=== PATIENT | female | born 1965 | race Caucasian/White ===

== ENCOUNTER 2018-04-13 16:45 | Inpatient (IN) | payer OTHER ==
[~2018-04-13] VITALS: Ht 152.4 cm; Wt 64.5 kg
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
[2018-04-13 17:42] LABS: ABSOLUTE BASOPHIL COUNT 0 /CUMM (0.0-0.2); ABSOLUTE EOSINOPHIL COUNT 0.1 /CUMM (0.0-0.7); ABSOLUTE GRANULOCYTE CT 6.5 /CUMM (1.4-6.5); ABSOLUTE LYMPH COUNT 1.5 /CUMM (1.2-3.4); ABSOLUTE MONOCYTE COUNT 0.3 /CUMM (0.10-0.60); BASOPHIL % 0.1 % (0.0-2.0); EOSINOPHIL % 1.6 % (0-5); GRANULOCYTE % 76.5 % (42.2-75.2); HEMATOCRIT 42.5 % (37-47); MEAN CORPUSCULAR HGB 28.5 PG (27.0-31.0); MEAN CORPUSCULAR HGB CONC 34.3 G/DL (33.0-37.0); MEAN CORPUSCULAR VOLUME 83.2 FL (81.0-99.0); PLATELET COUNT 216 /CUMM (130-400); RBC DISTRIBUTION WIDTH 13.9 % (11.5-14.5); RED BLOOD CELL CT 5.11 /CUMM (4.20-5.40); WHITE BLOOD CELL COUNT 8.4 /CUMM (4.8-10.8)
--- NOTE | 2018-04-13 17:58 | CT SCAN REPORT ---
EXAMINATION: CT HEAD WITHOUT CONTRAST CLINICAL INFORMATION: Syncopal episode COMPARISON: None TECHNIQUE: Contiguous axial imaging was performed from the skull base to vertex without intravenous administration of contrast. DLP: 608 mGy-cm FINDINGS: There is no evidence of acute intracranial hemorrhage or territorial infarction. No abnormal mass effect or midline shift is seen. Morales to white matter differentiation is well preserved. No extra-axial fluid collections are identified. The ventricles are normal in size. There is no abnormal attenuation within the brain parenchyma. The osseous structures and soft tissues are normal. The mastoid air cells and visualized portions of the paranasal sinuses are well aerated. IMPRESSION: No acute intracranial pathology.
[2018-04-13] MEDS ORDERED: TAMOXIFEN CITRA20 M1 PO (18:37)
[2018-04-13] MEDS ORDERED: HYDROXYZINE HCL10 M2 PO (18:38)
[2018-04-13] MEDS ORDERED: FLUTICASONE PRO16 GM NASB (18:38)
[2018-04-13] MEDS ORDERED: CYCLOBENZAPRINE10 M1 PO (18:38)
[2018-04-13] MEDS ORDERED: DULERA 200 MCG/13 GM INH (18:38)
[2018-04-13] MEDS ORDERED: VITAMIN B-121000 MC3 PO (18:39)
[2018-04-13] MEDS ORDERED: POTASSIUM99 M1 PO (18:39)
[2018-04-13] MEDS ORDERED: MULTIVITAMINS1 EAC9 PO (18:39)
[2018-04-13] MEDS ORDERED: TURMERIC500 M2 PO (18:39)
--- NOTE | 2018-04-13 19:48 | RADIOLOGY REPORT ---
EXAMINATION: XRY-PORTABLE CHEST XRAY CLINICAL INFORMATION: Presumptive Dx: PNA CHF
Signs Symptoms: SYNCOPE
COMPARISON: None TECHNIQUE: XRY-PORTABLE CHEST XRAY Tubes and lines: None Lungs and Diane: Increased opacification over the LEFT lung probably soft tissue overlap. Pleura: Normal. Costophrenic angles are sharp. No pneumothorax. Heart and mediastinum: The mediastinum is within normal limits.. There are tubular structures projecting over the mediastinum probably in patient's clothing's. Bones: Skeletal structures included are normal for patient's age. IMPRESSION: No radiographic evidence of acute cardiopulmonary disease.
--- NOTE | 2018-04-13 23:09 | History & Physical ---
Orion Boykin 04/13/18 6328: General Information and HPI MD Statement: I have seen and personally examined JESUS MARSH and documented this H&P. The patient is a 53 year old F who presented with a patient stated chief complaint of NEAR SYNCOPE. Source of Information: patient Exam Limitations: no limitations History of Present Illness: Patient is a 53-year-old woman with past medical history of hyperlipidemia, asthma, breast cancer s/p bilaterally mastectomy on Tamoxifen and disc herniation status post discectomy who presents with complaint of several non- syncopal episodes. The patient states she initially felt lightheaded and vertiginous while driving to a restaurant with her boyfriend. She had some prodromal symptoms and was able to pipe puller. While at the restaurant, the patient became presyncopal and hit her head on the table from a seated position. She also experienced the same symptoms when being brought to the ED by EMS. She denies losing consciousness. She denies palpitations, nausea, chest pain. She never experienced these symptoms before and thinks they are related to dehydration. She is also experiencing vertigo and gait instability several days prior to presentation. She does not drink much liquids including alcohol, one coffee in the morning. She is a daily smoker and overweight. She works as a business performance analyst, very sedentary. In the ED her vital signs were stable, blood tests unremarkable, troponins negative 2. She had a chest x-ray and normal head CT. EKG was normal sinus rhythm without ischemic changes. Normal cardiovascular neurological physical exam. She is admitted to telemetry for syncope workup. Allergies/Medications Allergies: Coded Allergies: Penicillins (HIVES 04/13/18) nut - unspecified (HIVES 04/13/18) venom-honey bee (HIVES 04/13/18) Home Med list Cyanocobalamin (Vitamin B-12) (Unknown Strength) TABLET (Unknown Dose) PO DAILY SUPPLEMENT (Reported) Cyclobenzaprine HCl 10 MG TABLET 1 TAB PO QPM MUSCLE SPASMS (Reported) Fluticasone Propionate 50 MCG/ACTUATION SPRAY.SUSP 2 SPRAY NASB PRN ALLERGIES (Reported) Hydroxyzine HCl (hydrOXYzine HCl) 10 MG TABLET 1 TAB PO QPM ITCHING (Reported ) Mometasone/Formoterol (Dulera 200 Mcg/5 Mcg Inhaler) 200 MCG-5 MCG/ACTUATION HFA.AER.AD 2 PUF INH BID PRN RESP. (Reported) Multiple Vitamin (Multivitamins) 1 EACH TABLET 1 TAB PO DAILY SUPPLEMENT ( Reported) Potassium Gluconate (Potassium) 595 MG (99 MG) TABLET 1 TAB PO DAILY SUPPLEMENT (Reported) Tamoxifen Citrate 20 MG TABLET 1 TAB PO DAILY BREAST CANCER (Reported) Turmeric Root Extract (Turmeric) (Unknown Strength) CAPSULE (Unknown Dose) PO DAILY SUPPLEMENT (Reported) Compliance With Home Meds: GOOD Past History Travel History Traveled to [place] past 21 day No Medical History Neurological: dizziness EENT: allergies Cardiovascular: hyperlipidemia Gastrointestinal: constipation Musculoskeletal: disk herniation Cancer(s): breast cancer Isolation History: Standard Surgical History Surgical History: non-contributory Past Family/Social History Psychosocial History Smoking Status: Current Everyday Smoker ETOH Use: denies use Illicit Drug Use: denies illicit drug use Review of Systems Review of Systems Constitutional: Reports: see HPI. Cardiovascular: Denies: chest pain, palpitations, syncope. Respiratory: Denies: short of breath. Neurological/Psychological: Denies: ataxia, headache, numbness, paresthesia, tingling, weakness. All Other Systems: Reviewed and Negative Exam & Diagnostic Data Last 24 Hrs of Vital Signs/I&O Vital Signs Date Time Temp Pulse Resp B/P B/P Pulse O2 O2 Flow FiO2 Mean Ox Delivery Rate 04/14 0634 98.5 91 20 150/77 97 Room Air 04/14 0010 150/90 04/14 0000 97.8 80 20 163/79 96 Room Air 04/13 2232 98.6 82 18 160/85 98 Room Air 04/13 2021 84 18 157/84 98 Room Air 04/13 1710 Room Air 04/13 1706 98.2 92 19 167/93 96 Room Air Intake & Output 04/14 1600 04/14 0800 04/14 0000 Intake Total 120 Output Total Balance 120 Intake, Oral 120 Patient 138 lb Weight Weight Bed scale Measurement Method Physical Exam General Appearance Alert, Oriented X3, Cooperative, No Acute Distress Skin No Rashes, No Breakdown, No Significant Lesion Skin Temp/Moisture Exam: Warm/Dry HEENT Atraumatic, PERRLA, EOMI, Mucous Membr. moist/pink Neck Supple, No JVD, No thryomegaly Cardiovascular Regular Rate, Normal S1, Normal S2, No Murmurs, Gallops, Rubs Lungs Clear to Auscultation, Normal Air Movement Abdomen Normal Bowel Sounds, Soft, No Tenderness Neurological Normal Speech, Strength at 5/5 X4 Ext, Normal Tone, Sensation Intact Extremities No Clubbing, No Cyanosis, No Edema Last 24 Hrs of Labs/Misha: Laboratory Tests 04/14/18 0647: Anion Gap 6, Estimated GFR > 60, BUN/Creatinine Ratio 18.8, Magnesium 1.9, Troponin I < 0.01, D-Dimer High Sensitivty < 200 04/14/18 0600: CBC w Diff Cancelled, WBC Cancelled, RBC Cancelled, Hgb Cancelled, Hct Cancelled , MCV Cancelled, MCH Cancelled, MCHC Cancelled, RDW Cancelled, Plt Count Cancelled, MPV Cancelled 04/13/182014: Troponin I < 0.01 04/13/18 1735: Anion Gap 6, Estimated GFR > 60, BUN/Creatinine Ratio 21.1, Glucose 117 H, Calcium 10.2, Total Bilirubin 0.2, AST 31, ALT 54 H, Alkaline Phosphatase 85, Troponin I < 0.01, Total Protein 7.1, Albumin 4.4, Globulin 2.7, Albumin/ Globulin Ratio 1.6, CBC w Diff NO MAN DIFF REQ, RBC 5.11, MCV 83.2, MCH 28.5, MCHC 34.3, RDW 13.9, MPV 10.0, Gran % 76.5 H, Lymphocytes % 17.7 L, Monocytes % 4.1, Eosinophils % 1.6, Basophils % 0.1, Absolute Granulocytes 6.5, Absolute Lymphocytes 1.5, Absolute Monocytes 0.3, Absolute Eosinophils 0.1, Absolute Basophils 0 Diagnostic Data EKG Results Sinus CXR Results Unremarkable Other Results CT head unremarkable Assessment/Plan Assessment: Patient is a 53-year-old woman with past medical history of hyperlipidemia, asthma, breast cancer s/p bilaterally mastectomy on Tamoxifen and disc herniation status post discectomy who presents with complaint of several non- syncopal episodes. Problem list/plan: Near syncope Breast cancer DVT prophylaxis: Lovenox and ALPS Heart healthy diet Patient is full code As Ranked By This Provider Problem List: 1. Syncope Qualifiers Syncope type: unspecified Qualified Code: R55 - Syncope and collapse Core Measures/Misc (05/06) Acute Coronary Syndrome ACS Diagnosis: No Congestive Heart Failure Congestive Heart Failure Diagnosis No Cerebrovascular Accident CVA/TIA Diagnosis: No VTE (View Protocol) VTE Risk Factors Age>40 No Mechanical VTE Prophylaxis d/t N/A MechProphylax Ordered No VTE Pharm Prophylaxis d/t NA PharmProphylax ordered Sepsis (View protocol) Sepsis Present: No If YES complete Sepsis Event Note If YES complete Sepsis Event Note Cindy BELLARaji Christine 04/14/18 0544: Core Measures/Misc (05/06) Sepsis (View protocol) If YES complete Sepsis Event Note If YES complete Sepsis Event Note Attending MD Review Statement Attending Statement Attending MD Statement: examined this patient, discuss w/resident/PA/SPICE MILLER HAMMER MILL, agreed w/resident/PA/SPICE MILLER HAMMER MILL Attending Assessment/Plan: Healthy 53 year-old presenting with recurrent syncopal episodes today. Occurred at rest, and without relation to postural changes in all instances. Weems dizzy and lightheaded immediately before all episodes, but without complaint of chest pain, palpitations, or seizure-like activity. Lab work was benign, as was imaging of the head. She is presently symptom free. Perhaps under some home stress. Place in observation for evaluation of recurrent syncope. There are prodromal symptoms, seemingly making arrhythmia less likely, although certainly enough to warrant overnight telemetry monitoring. Structural heart disease would be surprising but can be evaluated with echocardiogram. Due to her young age and multiple episodes a Cardiology consultation will be requested for evaluation for Holter. Hakeem Milton MD 04/14/18 0553: Core Measures/Misc (05/06) Sepsis (View protocol) If YES complete Sepsis Event Note If YES complete Sepsis Event Note Resident Review Statement Resident Statement: examined this patient, discussed with graphic design intern, agreed with graphic design intern, reviewed EMR data (avail) Other Findings: 53 year old female with PMH significant for asthma and breast cancer s/p lumpectomy + radx 2002 now s/p bilateral mastectomy in 2014 on Tamoxifen presents with several episodes of syncope. The patient reportedly first experience feeling lightheaded and vertigo while driving to eat with her boyfriend. She had some prodromal symptoms and was able to pipe puller. Then while eating she became presyncope and hit her head on the table from a seated position. She also experience the same symptoms which were apparently witnessed by EMS, while on the stretcher rolling into the ED. She denies ever losing consciousness. She denied any palpitations, nausea, or chest pain. She has never experienced these symptoms before and thinks they are related to dehydration. She also experience some vertigo and gait instability several days prior to presentation while shopping. She doesn't drink much liquids including alcohol, one coffee in the morning. She is a daily smoker and obese. 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 In the ED, her vital signs were stable and blood tests unremarkable, troponins negative x 2. SHe had a chest x-ray and normal head CT without contrast. Her EKG was normal sinus rhythm without ischemic changes. She had a normal cardiovascular and neurological physical examination. She was admitted to telemetry for syncope workup. Syncope: Monitor on telemetry for arrhythmias Check serial troponins and EKGs to evaluate for myocardial ischemia Check echocardiogram to evaluate for structural heart disease Check carotid dopplers to evaluate cerebral circulation patency Cardiology consultation May need outpatient Holter monitoring for arrhythmia evaluation Breast cancer: Continue tamoxifen Heart healthy diet DVT ppx-lovenox sc Full code
[2018-04-14] VITALS: BP 163/79
[2018-04-14 00:10] VITALS: BP 150/90
[2018-04-14 06:34] VITALS: BP 150/77
--- NOTE | 2018-04-14 09:06 | PN- Housestaff ---
Alicia BELLA,Cullen 04/14/18 0906: Subjective Follow-up For: Near syncope Tele-Events Since Last Visit: Normal sinus rhythm Heart rate 60s-90s Subjective: Patient seen and examined. Patient is seen resting in her bed comfortably. She slept well and has no complaints. She denies any further episodes of dizziness or palpitations. She is concerned about "having these episodes again" and states that it was one year ago that she was hospitalized for the "same thing". She is worried about being able to return to work. Currently she denies any chest pain, shortness of breath, or abdominal pain. Review of Systems Constitutional: Reports: see HPI. Objective Last 24 Hrs of Vital Signs/I&O Vital Signs Date Time Temp Pulse Resp B/P B/P Pulse O2 O2 Flow FiO2 Mean Ox Delivery Rate 04/14 0634 98.5 91 20 150/77 97 Room Air 04/14 0010 150/90 04/14 0000 97.8 80 20 163/79 96 Room Air 04/13 2232 98.6 82 18 160/85 98 Room Air 04/13 2021 84 18 157/84 98 Room Air 04/13 1710 Room Air 04/13 1706 98.2 92 19 167/93 96 Room Air Intake & Output 04/14 1600 04/14 0800 04/14 0000 Intake Total 120 Output Total Balance 120 Intake, Oral 120 Patient 62.596 kg Weight Weight Bed scale Measurement Method Physical Exam General Appearance: Alert, Oriented X3, Cooperative, No Acute Distress Other Physical Findings: General - well developed, well nourished middle-aged woman in no acute distress HEENT - NCAT, PERRL, EOMI, anicteric sclera Neck- Supple, no JVD/HJR, no bruits, trachea midline, thyroid normal Cardio - S1, S2 w/o murmurs/gallops/rubs; regular rate and rhythm Resp - Clear to auscultation bilaterally GI - Soft, nontender, nondistended, bowel sounds present Neuro - Awake and alert, CN II - XII grossly intact Extremities - No edema, pulses intact Current Medications: Current Medications Sig/Justyna Start time Last Medication Dose Route Stop Time Status Admin Acetaminophen 650 MG Q6P PRN 04/14 0015 AC PO Cyclobenzaprine HCl 10 MG QPM 04/14 2100 AC PO Cyclobenzaprine HCl 10 MG ONCE ONE 04/14 0030 DC 04/14 PO 04/14 0031 0041 Enoxaparin Sodium 40 MG DAILY 04/14 0900 AC 04/14 SC 0841 Fluticasone 2 SPRAY BID PRN 04/14 0230 AC Propionate DYLAN Hydroxyzine HCl 10 MG QPM 04/14 2100 AC PO Tamoxifen Citrate 20 MG DAILY 04/14 09 AC 04/14 PO 0927 Last 24 Hrs of Lab/Misha Results Last 24 Hrs of Labs/Mics: Laboratory Tests 04/14/18 0647: Anion Gap 6, Estimated GFR > 60, BUN/Creatinine Ratio 18.8, Magnesium 1.9, Troponin I < 0.01, D-Dimer High Sensitivty < 200 04/14/18 06: CBC w Diff Cancelled, WBC Cancelled, RBC Cancelled, Hgb Cancelled, Hct Cancelled , MCV Cancelled, MCH Cancelled, MCHC Cancelled, RDW Cancelled, Plt Count Cancelled, MPV Cancelled 04/13/182014: Troponin I < 0.01 04/13/18 1735: Anion Gap 6, Estimated GFR > 60, BUN/Creatinine Ratio 21.1, Glucose 117 H, Calcium 10.2, Total Bilirubin 0.2, AST 31, ALT 54 H, Alkaline Phosphatase 85, Troponin I < 0.01, Total Protein 7.1, Albumin 4.4, Globulin 2.7, Albumin/ Globulin Ratio 1.6, CBC w Diff NO MAN DIFF REQ, RBC 5.11, MCV 83.2, MCH 28.5, MCHC 34.3, RDW 13.9, MPV 10.0, Gran % 76.5 H, Lymphocytes % 17.7 L, Monocytes % 4.1, Eosinophils % 1.6, Basophils % 0.1, Absolute Granulocytes 6.5, Absolute Lymphocytes 1.5, Absolute Monocytes 0.3, Absolute Eosinophils 0.1, Absolute Basophils 0 Assessment/Plan Assessment: 53-year-old woman with multiple medical problems significant for previous episodes of syncope status post outpatient Holter monitor without any events seen for evaluation of multiple new near syncopal events for which she was admitted to the telemetry floor. Patient feels well and has no complaints and denies any further episodes of near syncope. Vital signs remain within normal limits aside from blood pressures ranging 150-160 systolic. Physical examination is unremarkable. Serial troponin/EKG are unremarkable. No events on telemetry overnight. Orthostatic blood pressures are negative. Patient has carotid Doppler and echocardiogram pending. Cardiology recommendations still pending. Patient may require outpatient Holter monitoring. Problem list -Near-syncope -hyperlipidemia -Asthma -History of discectomy -History of breast cancer status post bilateral mastectomy, on tamoxifen Plan -Continue telemetry floor admission -Telemetry monitoring -Continue home meds: Tamoxifen, Flexeril, fluticasone, Atarax -Cardiology consult pending for near syncope -Follow-up transthoracic echocardiogram -Follow-up carotid Doppler -Pain control with acetaminophen -Heart healthy diet -DVT prophylaxis with Lovenox -Full code Problem List: 1. Syncope Pain Ratin Pain Location: None Pain Goal: Remain pain free Pain Plan: See assessment Tomorrow's Labs & Rationales: None Adrian BELLA,Emile 04/14/18 0954: Attending MD Review Statement Attending Statement Attending MD Statement: examined this patient, discuss w/resident/PA/HAT BINDER, agreed w/resident/PA/HAT BINDER, reviewed EMR data (avail), discussed with nursing, amended to note Attending Assessment/Plan: Patient seen and examined. Resting comfortably and not in any acute distress. No events of on telemetry monitoring. No further reports of dizziness or loss of consciousness. Orthostatic vitals were checked this morning with no significant changes. Patient reports that she had Holter monitor placed several years ago. She is unclear of the indication for the study. She also does not believe she followed up for the results. In view of this history and unexplained syncope she may benefit from another Holter monitoring. She will also require an echocardiogram to rule out underlying structural disease. Awaiting cardiology consultation. 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
--- NOTE | 2018-04-14 13:38 | Cons- Cardiology ---
General Information and HPI Consulting Request Date of Consult: 04/14/18 Requested By: Raji White MD History of Present Illness: 53-year-old woman with past medical history of hyperlipidemia, asthma, breast cancer s/p bilaterally mastectomy on Tamoxifen, disc herniation status post discectomy, brougth to the ED for 3 episodes of near-syncope yesterday. Patient was initially driving with her boyfriend by her side, when she felt lightheaded, and pulled over, returned on the road a few minutes later when she felt better. Once the coupld arrived at the restaurant, she felt lightheaded again while sitting at the table, and again had a near-suncope, resting her head on the table. EMS was called and patient said to have lost consciousness in the ambulance this time, regaining consciousness within seconds. She denies chest pains, denies palpitations, denies dyspnea, denies orthopnea, denies nausea/vomiting/abdominal pain. Patient is quite sedentary and has not noticed any change in her functional status recently. Patient believes she is dehydrate as she does not drink sufficiently. No neurological deficit observed since admission. Initial head CT did not reveal any lesion. carotid doppler only shower a non obstructive plaque in the right ICA. Allergies/Medications Allergies: Coded Allergies: Penicillins (HIVES 04/13/18) nut - unspecified (HIVES 04/13/18) venom-honey bee (HIVES 04/13/18) Home Med List: Cyanocobalamin (Vitamin B-12) (Unknown Strength) TABLET (Unknown Dose) PO DAILY SUPPLEMENT (Reported) Cyclobenzaprine HCl 10 MG TABLET 1 TAB PO QPM MUSCLE SPASMS (Reported) Fluticasone Propionate 50 MCG/ACTUATION SPRAY.SUSP 2 SPRAY NASB PRN ALLERGIES (Reported) Hydroxyzine HCl (hydrOXYzine HCl) 10 MG TABLET 1 TAB PO QPM ITCHING (Reported ) Mometasone/Formoterol (Dulera 200 Mcg/5 Mcg Inhaler) 200 MCG-5 MCG/ACTUATION HFA.AER.AD 2 PUF INH BID PRN RESP. (Reported) Multiple Vitamin (Multivitamins) 1 EACH TABLET 1 TAB PO DAILY SUPPLEMENT ( Reported) Potassium Gluconate (Potassium) 595 MG (99 MG) TABLET 1 TAB PO DAILY SUPPLEMENT (Reported) Tamoxifen Citrate 20 MG TABLET 1 TAB PO DAILY BREAST CANCER (Reported) Turmeric Root Extract (Turmeric) (Unknown Strength) CAPSULE (Unknown Dose) PO DAILY SUPPLEMENT (Reported) Current Medications: Current Medications Sig/Justyna Start time Last Medication Dose Route Stop Time Status Admin Acetaminophen 650 MG Q6P PRN 04/14 0015 AC PO Cyclobenzaprine HCl 10 MG QPM 04/14 2100 AC PO Cyclobenzaprine HCl 10 MG ONCE ONE 04/14 0030 DC 04/14 PO 04/14 0031 0041 Enoxaparin Sodium 40 MG DAILY 04/14 0900 AC 04/14 SC 0841 Fluticasone 2 SPRAY BID PRN 04/14 0230 AC Propionate DYLAN Hydroxyzine HCl 10 MG QPM 04/14 2100 AC PO Tamoxifen Citrate 20 MG DAILY 04/14 09 AC 04/14 PO 09 Past History Travel History Traveled to [place] past 21 day No Medical History Neurological: dizziness EENT: allergies Cardiovascular: hyperlipidemia Gastrointestinal: constipation Musculoskeletal: disk herniation Cancer(s): breast cancer Surgical History Surgical History: non-contributory Psychosocial History Smoking Status: Current Everyday Smoker ETOH Use: denies use Illicit Drug Use: denies illicit drug use Exam & Diagnostic Data Vital Signs and I&O Vital Signs Date Time Temp Pulse Resp B/P B/P Pulse O2 O2 Flow FiO2 Mean Ox Delivery Rate 04/14 0800 97 Room Air 04/14 0634 98.5 91 20 150/77 97 Room Air 04/14 0010 150/90 04/14 0000 97.8 80 20 163/79 96 Room Air 04/13 2232 98.6 82 18 160/85 98 Room Air 04/13 2021 84 18 157/84 98 Room Air 04/13 1710 Room Air 04/13 1706 98.2 92 19 167/93 96 Room Air Intake & Output 04/14 1600 04/14 0804/14 0000 04/13 1600 04/13 0000 Intake Total 120 Output Total Balance 120 Intake, Oral 120 Patient 138 lb Weight Weight Bed scale Measurement Method Physical Exam: General Appearance Alert, Oriented X3, Cooperative, No Acute Distress HEENT Atraumatic, PERRLA, EOMI, Mucous Membr. moist/pink Neck Supple, No JVD, trachea midline Cardiovascular Regular Rate, Normal S1, Normal S2, No Murmur, no rub Lungs Clear to Auscultation, Normal Air Movement Abdomen Normal Bowel Sounds, Soft, No Tenderness Neurological Normal Speech, Strength at 5/5 X4 Ext, Normal Tone, Sensation Intact Extremities good capillary refill, No Cyanosis, No Edema Labs/Misha Results: Laboratory Tests 04/14 04/14 04/13 0647 0600 2014 Chemistry Sodium (137 - 145 mmol/L) 137 Potassium (3.5 - 5.1 mmol/L) 4.5 Chloride (98 - 107 mmol/L) 109 H Carbon Dioxide (22 - 30 mmol/L) 22 Anion Gap (5 - 16) 6 BUN (7 - 17 mg/dL) 15 Creatinine (0.5 - 1.0 mg/dL) 0.8 Estimated GFR (>60 ml/min) > 60 BUN/Creatinine Ratio (7 - 25 %) 18.8 Magnesium (1.6 - 2.3 mg/dL) 1.9 Troponin I (< 0.11 ng/ml) < 0.01 < 0.01 Coagulation D-Dimer High Sensitivty (0 - 243 ng/ml) < 200 Hematology CBC w Diff Cancelled WBC Cancelled RBC Cancelled Hgb Cancelled Hct Cancelled MCV Cancelled MCH Cancelled MCHC Cancelled RDW Cancelled Plt Count Cancelled MPV Cancelled 04/13 1735 Chemistry Sodium (137 - 145 mmol/L) 141 Potassium (3.5 - 5.1 mmol/L) 4.4 Chloride (98 - 107 mmol/L) 109 H Carbon Dioxide (22 - 30 mmol/L) 26 Anion Gap (5 - 16) 6 BUN (7 - 17 mg/dL) 19 H Creatinine (0.5 - 1.0 mg/dL) 0.9 Estimated GFR (>60 ml/min) > 60 BUN/Creatinine Ratio (7 - 25 %) 21.1 Glucose (65 - 99 mg/dL) 117 H Calcium (8.4 - 10.2 mg/dL) 10.2 Total Bilirubin (0.2 - 1.3 mg/dL) 0.2 AST (14 - 36 U/L) 31 ALT (9 - 52 U/L) 54 H Alkaline Phosphatase (<127 U/L) 85 Troponin I (< 0.11 ng/ml) < 0.01 Total Protein (6.3 - 8.2 g/dL) 7.1 Albumin (3.5 - 5.0 g/dL) 4.4 Globulin (1.9 - 4.2 gm/dL) 2.7 Albumin/Globulin Ratio (1.1 - 2.2 %) 1.6 Hematology CBC w Diff NO MAN DIFF REQ WBC (4.8 - 10.8 /CUMM) 8.4 RBC (4.20 - 5.40 /CUMM) 5.11 Hgb (12.0 - 16.0 G/DL) 14.6 Hct (37 - 47 %) 42.5 MCV (81.0 - 99.0 FL) 83.2 MCH (27.0 - 31.0 PG) 28.5 MCHC (33.0 - 37.0 G/DL) 34.3 RDW (11.5 - 14.5 %) 13.9 Plt Count (130 - 400 /CUMM) 216 MPV (7.4 - 10.4 FL) 10.0 Gran % (42.2 - 75.2 %) 76.5 H Lymphocytes % (20.5 - 51.1 %) 17.7 L Monocytes % (1.7 - 9.3 %) 4.1 Eosinophils % (0 - 5 %) 1.6 Basophils % (0.0 - 2.0 %) 0.1 Absolute Granulocytes (1.4 - 6.5 /CUMM) 6.5 Absolute Lymphocytes (1.2 - 3.4 /CUMM) 1.5 Absolute Monocytes (0.10 - 0.60 /CUMM) 0.3 Absolute Eosinophils (0.0 - 0.7 /CUMM) 0.1 Absolute Basophils (0.0 - 0.2 /CUMM) 0 Assessment/Plan Assessment/Plan 3 episodes of near-syncope/syncope with prodrome of lightheadedness without evidence of arrhtyhmia, ischemia, or cerebrovascular event. Possibly related to dehydration but concerning given how many times it occured in one day. Keep on telemtry for the moment. Echocardiogram. Stress test (could be done as outpatient). Hydration, PO since patient is able to drink. If no events are observed on telemetry, i will do a 3 week event monitor as outpatient. Consult Acknowledgment - Thank you for your consult request.
[2018-04-14 14:46] VITALS: BP 108/50
--- NOTE | 2018-04-14 15:45 | ULTRASOUND REPORT ---
EXAMINATION: US DUPLEX CAROTID AND VERTEBRAL CLINICAL INFORMATION: 3 episodes of lightheadedness overlying seated COMPARISON: None TECHNIQUE: Real-time ultrasound and Doppler techniques (integrating B-mode 2D vascular images, Doppler spectral analysis and color flow Doppler imaging) were utilized to interrogate the extracranial carotid and vertebral arteries bilaterally. The degree of stenosis determined by criteria similar to NASCET. FINDINGS: There is normal antegrade flow seen in both carotid arteries with echogenic atherosclerotic plaque right carotid bulb/proximal ICA. On the right peak systolic/end diastolic velocity distal CCA measures 68/22 cm/second. Peak systolic/end diastolic velocity ICA measures 77/30 cm/second. There is no significant stenosis. On the left peak systolic/end diastolic velocity distal CCA measures 77/20 6 cm/s. Peak systolic/end diastolic velocity proximal ICA measures 81/40 1 cm/second. There is no significant stenosis. There is normal antegrade flow seen in both vertebral arteries IMPRESSION: No hemodynamically significant stenosis in either carotid artery. Echogenic atherosclerotic plaque right carotid bulb/proximal ICA. Normal antegrade flow seen in both vertebral arteries.
[2018-04-14 22:07] VITALS: BP 98/54
--- NOTE | 2018-04-14 22:36 | ECHOCARDIOGRAM REPORT ---
JESUS MARSH Age: 53 : 1965 Gender: F Exam Date: 04/14/2018 10:40 Exam Location: 1 [address] Ht (in): 60 Wt (lb): 138 BSA: 1.65 BP: 150 / 77 Ordering Physician: Hakeem Milton MD Referring Physician: Ines Story MD Technologist: Genie Quezada [facility] Room Number: [id number] Indications: Lightheadedness Rhythm: Sinus Technical Quality: good FINDINGS Left Ventricle Normal left ventricular size, wall thickness and systolic function with no obvious regional wall motion abnormalities. Normal left ventricular diastolic filling pattern for age. The ejection fraction is visually estimated at 65 %. Right Ventricle The right ventricle is normal in size and function. Right Atrium The right atrium is normal in size. Left Atrium The left atrium is normal in size. The interatrial septum is intact. Mitral Valve The mitral valve is normal in structure and function with mild MAC. There is trace mitral regurgitation. Aortic Valve Structurally normal aortic valve without significant sclerosis or stenosis. There is trace aortic regurgitation. Tricuspid Valve The tricuspid valve is normal in structure and function. There is trace tricuspid regurgitation. Pulmonary artery systolic pressure could not be obtained. Pulmonic Valve Structurally normal pulmonic valve. There is trace pulmonic regurgitation. Pericardium Normal pericardium without effusion. No pleural effusion. Great Vessels Normal aortic root dimension. The aortic arch and great vessels are well seen and are normal. CONCLUSIONS Normal left ventricular size, wall thickness and systolic function with no obvious regional wall motion abnormalities. Normal left ventricular diastolic filling pattern for age. The ejection fraction is visually estimated at 65 %. The right ventricle is normal in size and function. The interatrial septum is intact. The mitral valve is normal in structure and function with mild MAC. There is trace mitral regurgitation. Structurally normal aortic valve without significant sclerosis or stenosis. There is trace aortic regurgitation. There is trace tricuspid regurgitation. Pulmonary artery systolic pressure could not be obtained. There is trace pulmonic regurgitation. Normal pericardium without effusion. Normal aortic root dimension. Ines Contreras M.D. (Electronically Signed) Final Date: 14 April 2018 22:36 MEASUREMENTS (Male / Female) Normal Values 2D ECHO LV Diastolic Diameter PLAX 4.2 cm 4.2 - 5.9 / 3.9 - 5.3 cm LV Systolic Diameter PLAX 2.7 cm 2.1 - 4.0 cm LV Fractional Shortening PLAX 35.7 % 25 - 46 % LV Ejection Fraction 2D Teich 65.6 % IVS Diastolic Thickness 0.8 cm LVPW Diastolic Thickness 0.9 cm LV Relative Wall Thickness 0.4 RV Internal Dim ED PLAX 1.9 cm 1.9 - 3.8 cm LVOT Diameter 1.8 cm Aortic Root Diameter 2.4 cm LA Systolic Diameter LX 2.6 cm 3.0 - 4.0 / 2.7 - 3.8 cm LA Volume 18.0 cm 18 - 58 / 22 - 52 cm Ascending Aorta Diameter 2.5 cm DOPPLER AV Peak Velocity 112.0 cm/s AV Peak Gradient 5.0 mmHg AV Mean Velocity 83.9 cm/s AV Mean Gradient 3.0 mmHg AV Velocity Time Integral 21.4 cm LVOT Peak Velocity 100.0 cm/s LVOT Peak Gradient 4.0 mmHg LVOT Mean Velocity 64.6 cm/s LVOT Mean Gradient 2.0 mmHg LVOT Velocity Time Integral 18.4 cm LVOT Stroke Volume 46.8 cm AV Area Cont Eq vti 2.2 cm AV Area Cont Eq pk 2.3 cm MV Peak Velocity 80.4 cm/s MV Peak Gradient 2.6 mmHg MV Mean Velocity 46.9 cm/s MV Mean Gradient 1.0 mmHg Mitral E Point Velocity 48.4 cm/s Mitral A Point Velocity 53.8 cm/s Mitral E to A Ratio 0.9 MV PHT Velocity 65.8 cm/s MV Deceleration Taylor 224.0 cm/s MV Pressure Half Time 88.1 ms MV Area PHT 2.5 cm MV Deceleration Time 333.0 ms PV Peak Velocity 143.0 cm/s PV Peak Gradient 8.2 mmHg PV Mean Velocity 84.2 cm/s PV Mean Gradient 4.0 mmHg PV Velocity Time Integral 22.0 cm LV E' Lateral Velocity 11.0 cm/s Mitral E to LV E' Lateral Ratio 4.4 LV E' Septal Velocity 7.9 cm/s Mitral E to LV E' Septal Ratio 6.1
[2018-04-15 06:46] VITALS: BP 148/93
--- NOTE | 2018-04-15 08:18 | PN- Housestaff ---
Frank BELLA,Meka 04/15/18 0818: Subjective Follow-up For: near syncope Subjective: vitals stable. denies palpitations chest pain or dizziness. feels good. patient to be discharged. Review of Systems Constitutional: Reports: no symptoms. Cardiovascular: Reports: no symptoms. Respiratory: Reports: no symptoms. Gastrointestinal: Reports: no symptoms. Musculoskeletal: Reports: no symptoms. Objective Last 24 Hrs of Vital Signs/I&O Vital Signs Date Time Temp Pulse Resp B/P B/P Pulse O2 O2 Flow FiO2 Mean Ox Delivery Rate 04/15 1454 98.3 90 20 132/90 97 Room Air 04/15 0646 98.1 81 20 148/93 97 Room Air Intake & Output 04/15 1600 04/15 0800 04/15 0000 Intake Total 240 480 Output Total Balance 240 480 Intake, Oral 240 480 Patient 142 lb Weight Weight Bed scale Measurement Method Physical Exam General Appearance: Alert, Oriented X3, Cooperative, No Acute Distress Skin Temp/Moisture Exam: Warm/Dry Cardiovascular: Regular Rate, Normal S1, Normal S2, No Murmurs Abdomen: Normal Bowel Sounds, Soft, No Tenderness Neurological: Normal Speech Extremities: No Clubbing, No Cyanosis, No Edema Vascular: Normal Pulses, Pulses Symmetrical Current Medications: Current Medications Sig/Justyna Start time Last Medication Dose Route Stop Time Status Admin Acetaminophen 650 MG Q6P PRN 04/14 0015 DCD 04/15 PO 1204 Cyclobenzaprine HCl 10 MG QPM 04/14 2100 DCD 04/14 PO 2124 Enoxaparin Sodium 40 MG DAILY 04/14 0900 DCD 04/15 SC 0813 Fluticasone 2 SPRAY BID PRN 04/14 0230 DCD Propionate DYLAN Hydroxyzine HCl 10 MG QPM 04/14 2100 DCD 04/14 PO 2124 Tamoxifen Citrate 20 MG DAILY 04/14 0900 DCD 04/15 PO 0808 Assessment/Plan Assessment: 53-year-old woman with multiple medical problems significant for previous episodes of syncope status post outpatient Holter monitor without any events seen for evaluation of multiple new near syncopal events for which she was admitted to the telemetry floor. Patient feels well and has no complaints and denies any further episodes of near syncope. Vital signs remain within normal limits aside from blood pressures ranging 150-160 systolic. Physical examination is unremarkable. Serial troponin/EKG are unremarkable. No events on telemetry overnight. Orthostatic blood pressures are negative. Patient has carotid Doppler and echocardiogram pending. Cardiology recommendations still pending. Patient may require outpatient Holter monitoring. Problem list -Near-syncope -hyperlipidemia -Asthma -History of discectomy -History of breast cancer status post bilateral mastectomy, on tamoxifen Plan -Telemetry monitoring showed no evvents and NSR -Continue home meds: Tamoxifen, Flexeril, fluticasone, Atarax -Cardiology consult ok to dc patient with stress test outpatient and continuation cardiac event monitoring. Her holter monitoring done previously was in 1999. -Follow-up transthoracic echocardiogram which was normal with EF 65% -Follow-up carotid Doppler normal velocties except echogenic atherosclerotic plaque at right carotid bulb proximal ICA. -Pain control with acetaminophen -Heart healthy diet -DVT prophylaxis with Lovenox -Full code Problem List: 1. Syncope Pain Ratin Pain Location: na Pain Goal: Remain pain free Pain Plan: na Tomorrow's Labs & Rationales: dc pt Cristina Carlos 04/15/18 1442: Attending MD Review Statement Attending Statement Attending MD Statement: examined this patient, discuss w/resident/PA/PLUG MAKER, agreed w/resident/PA/PLUG MAKER, reviewed EMR data (avail) Attending Assessment/Plan: Near syncopal episodes- Pt will be dced today with outpt stress test . Pt had near syncopal episode times 2 Prior to admission. seen by cardiology . Echo was normal. Pt was counselled to quit smoking . see dc summary for more details. d/w pt the care plan.
--- NOTE | 2018-04-15 10:48 | PN- Cardiology ---
Subjective Subjective: Patient in SR, denies chest pains, denies neurological deficit. Denies word finding difficulty. Anxious to get back to work. Objective Vital Signs and I&Os Vital Signs Date Time Temp Pulse Resp B/P B/P Pulse O2 O2 Flow FiO2 Mean Ox Delivery Rate 04/15 0646 98.1 81 20 148/93 97 Room Air 04/14 2207 97.7 90 16 98/54 95 Room Air 04/14 1446 98.1 83 20 108/50 97 Room Air Intake & Output 04/15 1600 04/15 0000 04/14 1600 04/14 0804/14 0000 Intake Total 240 480 600 120 Output Total Balance 240 480 600 120 Intake, Oral 240 480 600 120 Patient 142 lb 138 lb Weight Weight Bed scale Bed scale Measurement Method Physical Exam: General Appearance Alert, Oriented X3, Cooperative, No Acute Distress HEENT Atraumatic, PERRLA, EOMI, Mucous Membr. moist/pink Neck Supple, No JVD, trachea midline Cardiovascular Regular Rate, Normal S1, Normal S2, No Murmur, no rub Lungs Clear to Auscultation, Normal Air Movement Abdomen Normal Bowel Sounds, Soft, No Tenderness Neurological Normal Speech, Strength at 5/5 X4 Ext, Normal Tone, Sensation Intact Extremities good capillary refill, No Cyanosis, No Edema Current Medications: Current Medications Sig/Justyna Start time Last Medication Dose Route Stop Time Status Admin Acetaminophen 650 MG Q6P PRN 04/14 0015 AC PO Cyclobenzaprine HCl 10 MG QPM 04/14 2100 AC 04/14 PO 212 Enoxaparin Sodium 40 MG DAILY 04/14 09 AC 04/15 SC 0813 Fluticasone 2 SPRAY BID PRN 04/14 0230 AC Propionate DYLAN Hydroxyzine HCl 10 MG QPM 04/14 2100 AC 04/14 PO 212 Tamoxifen Citrate 20 MG DAILY 04/14 09 AC 04/15 PO 0808 Results Last 48 Hrs of Labs/Mics: Laboratory Tests 04/14/18 0647: Anion Gap 6, Estimated GFR > 60, BUN/Creatinine Ratio 18.8, Magnesium 1.9, Troponin I < 0.01, D-Dimer High Sensitivty < 200 04/14/18 0600: CBC w Diff Cancelled, WBC Cancelled, RBC Cancelled, Hgb Cancelled, Hct Cancelled , MCV Cancelled, MCH Cancelled, MCHC Cancelled, RDW Cancelled, Plt Count Cancelled, MPV Cancelled 04/13/182014: Troponin I < 0.01 04/13/18 1735: Anion Gap 6, Estimated GFR > 60, BUN/Creatinine Ratio 21.1, Glucose 117 H, Calcium 10.2, Total Bilirubin 0.2, AST 31, ALT 54 H, Alkaline Phosphatase 85, Troponin I < 0.01, Total Protein 7.1, Albumin 4.4, Globulin 2.7, Albumin/ Globulin Ratio 1.6, CBC w Diff NO MAN DIFF REQ, RBC 5.11, MCV 83.2, MCH 28.5, MCHC 34.3, RDW 13.9, MPV 10.0, Gran % 76.5 H, Lymphocytes % 17.7 L, Monocytes % 4.1, Eosinophils % 1.6, Basophils % 0.1, Absolute Granulocytes 6.5, Absolute Lymphocytes 1.5, Absolute Monocytes 0.3, Absolute Eosinophils 0.1, Absolute Basophils 0 Assessment/Plan Assessment/Plan Syncope without evidence of neurological deficit, arrhythmia or myocardial ischemia. No evidence of metastatic lesion on C- CT scan of brain, it would be worth considering MRI as outpatient. Patient is very anxious. I have no objection with discharge and patient could do her stress test as outpatient. I would like to see her at the clinic in the coming weeks for event monitoring. Continue telemetry? No
--- NOTE | 2018-04-15 12:41 | Patient Discharge Instructions ---
Discharge Instructions General Discharge Information You were seen/treated for: NEAR SYNCOPE Special Instructions: PLEASE FOLLOW UP WITH PCP IN ONE WEEK PLEASE FOLLOW UP WITH ADMINISTRATIVE LIBRARY ASSISTANT IN 2 WEEKS Diet Continue normal diet: Yes Activity Full Activity/No Limits: Yes Acute Coronary Syndrome Inclusion Criteria At DC or during hospital stay patient has or had the following: ACS DIAGNOSIS No Discharge Core Measures Meds if any: Prescribed or Continued at Discharge Meds if any: NOT Prescribed or Continued at Discharge Congestive Heart Failure Inclusion Criteria At DC or during hospital stay patient has or had the following: CHF DIAGNOSIS No Discharge Core Measures Meds if any: Prescribed or Continued at Discharge Meds if any: NOT Prescribed or Continued at Discharge Cerebrovascular accident Inclusion Criteria At DC or during hospital stay patient has or had the following: CVA/TIA Diagnosis No Discharge Core Measures Meds if any: Prescribed or Continued at Discharge Meds if any: NOT Prescribed or Continued at Discharge Venous thromboembolism Inclusion Criteria VTE Diagnosis No VTE Type NONE VTE Confirmed by (Test) NONE Discharge Core Measures - Per Current guidelines, there needs to be overlap - treatment for the first 5 days of Warfarin therapy. - If discharged on Warfarin prior to 5 days of - overlap therapy, the patient will need to be - assessed for post discharge needs including - *Post discharge parental anticoagulation - *Warfarin and/or parental anticoagulation education - *Follow up date to check INR post discharge At least 5 days overlap therapy as Inpatient No Meds if any: Prescribed or Continued at Discharge Note: Overlap Therapy is Warfarin and Anticoagulant Meds if any: NOT Prescribed or Continued at Discharge
[2018-04-15 14:54] VITALS: BP 132/90
== END 2018-04-15 17:12 | DRG 204 ==
LOC: ERH 16:45 → 1NO 21:43 → ERHI 21:43 → ENRESERV 22:08 → ENTRNSPT 22:50 → 1NO 23:02 → CMPTRNSPT 04-14 06:57 → ENPENDDIS 04-15 13:25 → 1NO 04-15 17:12
PROVIDERS: Physician Assistant Medical
DX: R55 Syncope and collapse (principal); C50.919 Malignant neoplasm of unspecified site of unspecified female breast; E78.5 Hyperlipidemia, unspecified; Z90.13 Acquired absence of bilateral breasts and nipples; Z79.810 Long term (current) use of selective estrogen receptor modulators (SERMs); Z88.0 Allergy status to penicillin; Z98.1 Arthrodesis status; F17.210 Nicotine dependence, cigarettes, uncomplicated; E66.3 Overweight; Z68.26 Body mass index [BMI] 26.0-26.9, adult; J45.909 Unspecified asthma, uncomplicated
CPT/HCPCS: 1NP; 36592; 71045; 82436; 93005; 93010; 93306; J1650